=== PATIENT | male | born 1980 | race Caucasian/White ===

== ENCOUNTER 2024-04-07 12:29 | Emergency (ER) | payer OTHER, SELFPAY ==
--- NOTE | ~2024-04-07 | CT_ITS ---
EXAMINATION: CT abdomen pelvis w con DATE: 04/07/2024 14:19 INDICATION: Left lower quadrant abdominal pain TECHNIQUE: Computed tomography (CT) of the abdomen and pelvis was performed with 100 mL Omnipaque-350 intravenous contrast. Automated exposure control and iterative reconstruction technique were employe d. The dose-length product was 436.39 mGy-cm. COMPARISON: None FINDINGS: Lung bases are clear. Heart size is normal. No pericardial or pleural effusion. Focal hepatic steatos is at the ligamentum teres. Gallbladder, spleen, pancreas and bilateral adrenal glands are normal. 9 mm macroscopic fat attenuation angiomyolipoma at the lower pole of the right kidney. 1.2 cm fluid att enuation cyst at the lower pole of the left kidney. There is moderate colonic diverticulosis. There i s focal wall thickening at the proximal sigmoid colon with surrounding inflammatory stranding and sin gle tiny focus of extraluminal gas consistent with acute diverticulosis with microperforation. No abs cess, free intraperitoneal gas or more remote free intraperineal gas. No bowel obstruction. Tiny fat- containing umbilical hernia. Bladder is normal. No pathologically enlarged abdominal or pelvic lympha denopathy. Mild lumbar spondylosis. IMPRESSION: 1. Proximal sigmoid diverticulitis with microperforation but without abscess. Reviewed, dictated and finalized at location A.
[2024-04-07 12:32] VITALS: BP 126/82; PULSE 81; RESP 20; TEMP 36.7; O2SAT 100
[2024-04-07 13:00] LABS: Basophils Absolute Auto 0.1 K/mm3 (0.0-0.1); Basophils Percent Auto 0.4 % (0.2-1.2); Eosinophils Absolute Auto 0.1 K/mm3 (0-0.3); Eosinophils Percent Auto 0.4 % (0-4.4); Hematocrit 40.6 % (42.0-52.0); Hemoglobin 13.9 g/dL (14.0-18.0); Immature Granulocyte Absolute 0.09 K/mm3 (0.00-0.031); Immature Granulocyte Percent A 0.7 % (0-0.5); Lymphocytes Absolute Auto 1.53 K/mm3 (0.9-3.2); Lymphocytes Percent Auto 12.4 % (18.3-44.2); Mean Corpuscular HGB Conc 34.2 g/dl (32-36); Mean Corpuscular Hemoglobin 29.2 pg (26-34); Mean Corpuscular Volume 85.3 fl (80-100); Monocytes Absolute Auto 0.7 K/mm3 (0.1-0.6); Monocytes Percent Auto 5.5 % (2.6-8.5); Neutrophils Absolute Auto 9.9 K/mm3 (1.3-6.7); Neutrophils Percent Auto 80.6 % (45.5-73.1); Platelet Count Result 364 k/mm3 (150-375); Red Blood Count 4.76 M/mm3 (4.6-6.20); Red Cell Distribution Width 12.5 % (11.5-14.5); White Blood Count 12.3 K/mm3 (4.5-10.0)
[2024-04-07 13:05] LABS: Alanine Aminotransferase 57 U/L (6-50); Albumin Level 4.3 g/dL (3.5-5.1); Alkaline Phosphatase 72 U/L (38-126); Anion Gap 14 mmol/L (4-12); Aspartate Amino Transferase 40 U/L (17-59); Bilirubin,Total 0.4 mg/dL (0.2-1.3); Blood Urea Nitrogen 14 mg/dL (9-20); Calcium 9.1 mg/dL (8.4-10.2); Carbon Dioxide 23 mmol/L (22-30); Chloride 101 mmol/L (98-107); Estimated CRCL calculation 92 ml/min; Estimated Glomerular Filt Rate > 60; Glucose 125 mg/dL (65-110); Lipase 118 U/L (23-300); Potassium 3.5 mmol/L (3.4-5.0); Sodium 138 mmol/L (137-145)
--- NOTE | 2024-04-07 13:34 | ED.ABDPAIN ---
HPI - Abdominal Pain General Chief Complaint: Abdominal Pain Stated Complaint: diverticulitis flare up Time Seen by Provider: 04/07/24 13:19 Source: patient Mode of arrival: ambulatory Limitations: no limitations History of Present Illness HPI narrative: This is a 43-year-old male who presents to the ED with chief complaint of left sided abdominal pain x2 weeks and worse over the last couple of days. Patient reports that he had fever 100.42 nights ago but none since. He has been taking Tylenol intermittently. He has history of diverticulitis and this feels the same. endorses lower abdominal pain with urination and with bowel movements. Denies GI bleeding symptoms, diarrhea, nausea, vomiting, lightheadedness or syncope. Denies dysuria, hematuria Review of Systems Review of Systems: All systems as dictated in HPI Exam Narrative: GENERAL: Well-appearing, well-nourished, and in no acute distress. HEAD: Normocephalic, atraumatic. EYES: PERRLA and EOMI. ENT: Nares clear, no rhinorrhea or epistaxis. Mucous membranes moist. Oropharynx without tonsillar hypertrophy exudate or other lesions. NECK: Supple. No adenopathy or masses. CHEST: No respiratory distress. Clear to auscultation. No wheezes rales or rhonchi HEART: Regular rate and rhythm. No murmur heard. Normal peripheral pulses. ABDOMEN: focal left lower quadrant tenderness present. Soft, otherwise nontender, nondistended, normal active bowel sounds. MSK: Normal range of motion. No edema. SKIN: Warm, dry, no rash. NEURO: Alert and oriented x4. No focal deficits. PSYCH: Normal mood and affect. Course Vital Signs Vital signs: Vital Signs Temperature 98.0 F 04/07/24 12:32 Pulse Rate 81 04/07/24 12:32 Respiratory Rate 20 04/07/24 12:32 Blood Pressure 126/82 04/07/24 12:32 Pulse Oximetry 100 04/07/24 12:32 Oxygen Delivery Room Air 04/07/24 12:32 Temperature 98.3 F 04/07/24 15:00 Pulse Rate 70 04/07/24 15:00 Respiratory Rate 16 04/07/24 15:00 Blood Pressure 132/80 04/07/24 15:00 Pulse Oximetry 100 04/07/24 15:00 Oxygen Delivery Room Air 04/07/24 12:32 MDM - Abdominal Pain MDM Narrative Medical decision making narrative: This is a 43-year-old male who presents to the ED for repeat bout of uncomplicated sigmoid diverticulitis. Started having left lower quadrant pain over the past couple weeks. Vitals are normal. Exam remarkable for the above. Lab work shows slightly elevated white count [address]22. Labs are otherwise unremarkable. CT imaging remarkable for the above. Did not require any pain meds here. Rx for [place] for breakthrough pain as well as Augmentin for antibiotics. Pt will be discharged in stable condition. Return precautions given and supportive measures discussed. Pt is understanding and agreeable with plan for discharge and follow-up with PCP. Lab Data 04/07/24 12:49 04/07/24 12:49 Labs: Lab Results 04/07/24 04/07/24 Range/Units 12:49 13:28 WBC 12.3 H (4.5-10.0) K/mm3 RBC 4.76 (4.6-6.20) M/mm3 Hgb 13.9 L (14.0-18.0) g/dL Hct 40.6 L (42.0-52.0) % MCV 85.3 (80-100) fl MCH 29.2 (26-34) pg MCHC 34.2 (32-36) g/dl RDW 12.5 (11.5-14.5) % Plt Count 364 (150-375) k/mm3 MPV 10.0 (7.4-10.4) fl Immature Gran % (Auto) 0.7 H (0-0.5) % Neut % (Auto) 80.6 H (45.5-73.1) % Lymph % (Auto) 12.4 L (18.3-44.2) % [place] % (Auto) 5.5 (2.6-8.5) % Eos % (Auto) 0.4 (0-4.4) % Baso % (Auto) 0.4 (0.2-1.2) % Lymph # (Auto) 1.53 (0.9-3.2) K/mm3 [place] # (Auto) 0.7 H (0.1-0.6) K/mm3 Eos # (Auto) 0.1 (0-0.3) K/mm3 Baso # (Auto) 0.1 (0.0-0.1) K/mm3 Abs Immat Gran (auto) 0.09 H (0.00-0.031) K/mm3 Absolute Neuts (auto) 9.9 H (1.3-6.7) K/mm3 Absolute Nucleated RBC 0.000 (0.0-0.012) K/mm3 Nucleated RBC % 0.0 (0.0-0.2) % Sodium 138 (137-145) mmol/L Potassium 3.5 (3.4-5.0) mmol/L Chloride
[2024-04-07 13:50] LABS: Bacteria Urine None Seen /hpf; Non Pathogenic Casts 0-2; RBC Urine 0-2 /hpf (0-2); Squamous Epithelial Cell Urine None Seen /hpf (Few); WBC Urine 0-5 /hpf (0-3)
[2024-04-07 14:01] LABS: Appearance Urine Clear (Clear); Color Urine Yellow (Yellow); Protein Urine Negative (Negative); Specific Grav Ur 1.005 (1.001-1.035); pH Urine 6.5 (5.0-9.0)
[2024-04-07 14:02] LABS: Add Urine Microscopic? NO; Bilirubin Urine Negative (Negative); Blood Urine Negative (Negative); Glucose Urine UA Negative (Negative); Ketones Urine Negative (Negative); Leukocyte Esterase Ur Negative LEU/UL (Negative); Nitrate Urine Negative (Negative); Urobilinogen Urine 0.2 mg/dL (<2.0)
[2024-04-07 15:00] VITALS: BP 132/80; PULSE 70; RESP 16; TEMP 36.8; O2SAT 100
== END 2024-04-07 15:02 | disposition home or self-care (01) ==
PROVIDERS: Student in an Organized Health Care Education/Training Program; Emergency Provider Physician Assistant
DX: K57.32 Diverticulitis of large intestine without perforation or abscess without bleeding (principal)
CPT/HCPCS: 36415; 74177; 80053; 81003; 83690; 85025; 99284; Q9967

== ENCOUNTER 2024-12-28 20:01 | Emergency (ER) | payer OTHER, SELFPAY ==
[2024-12-28] VITALS (15 sets, daily range): BP systolic 112–132; BP diastolic 71–83; PULSE 70–93; RESP 13–21; TEMP 36.9; O2SAT 95–100
--- NOTE | ~2024-12-28 | CT_ITS ---
CLINICAL INDICATION: Abdominal pain COMPARISON: 04/07/2024. TECHNIQUE: Multiple contiguous axial images of the abdomen and pelvis were performed following the ad ministration of with 100 mL Omnipaque-350 intravenous contrast The dose-length product (DLP) was 612.10 mGy-cm. Automated exposure control and iterative reconstruction technique were employed. FINDINGS/OBSERVATIONS: Visualized lower thorax: The bilateral lung bases are clear. The heart is of normal size, without pericardial effusion. Small hiatal hernia is present. Liver: The liver demonstrates homogeneous enhancement and is not enlarged. Gallbladder and biliary system: The gallbladder is only minimally distended, and otherwise unremarkable. Pancreas: The pancreas enhances homogeneously without ductal dilatation. Spleen: The spleen enhances homogeneously and is not enlarged. Kidneys: The bilateral kidneys enhance symmetrically without hydronephrosis or renal calculi. Adrenal glands: Unremarkable. Gastrointestinal tract: Mural thickening and surrounding inflammatory changes identified within the sigmoid colon, findings c onsistent with acute diverticulitis. No gross perforation is identified. Small contained perforation is noted. No rim-enhancing fluid collections are identified. Appendix: The appendix is not definitively visualized. However, no pericecal inflammatory change is identified suggest the presence of acute appendicitis. Vasculature: Unremarkable. Lymph nodes: No pathologically enlarged or morphologically suspicious lymph nodes within the retroperitoneum or at the root of the mesentery. Pelvic structures: The bladder is minimally distended, and otherwise unremarkable. The prostate gland is not enlarged. Body wall and musculoskeletal: Small fat-containing umbilical hernia. No significant degenerative disease within the lower thoracic or lumbosacral spine. IMPRESSION: Findings consistent with acute sigmoid diverticulitis without a drainable fluid collection or gross p erforation. A small contained perforation is identified. Follow-up to resolution is recommended as a malignancy has a similar appearance. Reviewed, dictated and finalized at location A. IMPRESSION: Findings consistent with acute sigmoid diverticulitis without a drainable fluid collection or gross perforation. A small contained perforation is identified. Follow-up to resolution is recommended as a malignancy has a similar appearance .
--- OUTSIDE RECORDS SUMMARY | 2024-12-28 20:03 | XMS_ITS | Continuity of Care Document ---
Author Name [facility] Organization [facility] Care Team Providers Care Grant Officer Name Role Phone [facility] Unavailable Unavailable Problems Combined list of problems from Department of Defense and Veterans Affairs facilities. It does not include entries that were removed or entered in error. Problem Status Onset Date Problem Type Date of Resolution Comments Source Anxiety Active Condition [facility] Cervical degenerative disc disease1 Active Condition MRI IN 2014 [facility] GERD Active Condition Medical Group Hyperlipidaemia Active Condition [facility] Knee pain2 Active Condition MRI in 15 with fat pad hypertrophy [facility] PTSD Active Condition [facility] Medications Combined list of outpatient medications from Department of Defense and Veterans Affairs facilities.Medications provided include 1) outpatient medications from the last 15 months, and 2) patient-reported medications. 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, Pharmacy : [facility] Oral (given by mouth) Complet ed 07/27/20212020 90.0 0059C-2 [facility] Ambien 5 mg oral tablet 2 tab(s), Oral, As Directed , PRN as needed for sleep, 0 total refill(s ), Maintena nce Oral (given by mouth) Discont inued 03/23/202220219C-2 [facility] Ambien 5 mg oral tablet 2 tab(s), Oral, As Directed , PRN sleep, # 24 tab(s), 0 total refill(s ), Acute, 08/22/22 12:00:00 AM 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, Pharmacy : [facility] Oral (given by mouth) Complet ed 08/22/2022 2 2022 24.0 0059C-[facility] cholecalcif alesha 1000 intl units (25 mcg) oral tablet cholecal ciferol 1000 intl units (25 mcg) oral tablet Start Date: 08/25/20 Stop Date: 03/14/21 Status: Disconti phyllis Repeat number: 1 Discont inued 03/14/20212020 No Facilit y Access cholecalcif alesha 50,000 intl units (1250 mcg) oral capsule 1 cap(s), Oral, every week, # 100 cap(s), Maintena nce Oral (given by mouth) Complet ed 03/08/20222021 100.0 No Facilit y Access gabapentin 300 mg oral capsule 1 cap(s), Oral, Daily, # 30 cap(s), 0 total refill(s ), Maintena pre, Pharmacy : [facility] #[id number] Oral (given by mouth) Ordered 2021 30.0 0059C-2 [facility] gabapentin 300 mg oral capsule 1 cap(s), Oral, Daily, # 30 cap(s), 0 total refill(s ), Hard Stop, 05/12/22 11:25:08 AM CDT, Pharmacy : [facility] Oral (given by mouth) Complet ed 05/12/20222021 30.0 0059C-2 [facility] ibuprofen 800 mg oral tablet 1 tab(s), Oral, TID, # 30 tab(s) Oral (given by mouth) Complet ed 03/08/20222021 30.0 No Facilit y Access ibuprofen 800 mg oral tablet 1 tab(s), Oral, every 8 hr, PRN pain (mild), with food or milk, # 270 tab(s), 0 total refill(s ), Maintena prbrooklyn, Pharmacy : [facility] Oral (given by mouth) Discont inued 03/23/2022 2 2021 270.0 0059C-2 [facility] ibuprofen 800 mg oral tablet 1 tab(s), Oral, every 8 hr, PRN pain (mild), with food or milk, # 270 tab(s), 0 total refill(s ), [facility], Pharmacy : [facility] Oral (given by mouth) Discont inued 08/09/2021 1 2021 270.0 0059C-2 [facility] ibuprofen 800 mg oral tablet 1 tab(s), Oral, every 8 hr, PRN pain (mild), with food or milk, # 270 tab(s), 1 total refill(s ), [facility], Pharmacy : [facility] Oral (given by mouth) Ordered 3 2021 270.0 0059C-2 [facility] omeprazole 20 mg oral delayed release capsule 1 cap(s), Oral, BID Oral (given by mouth) Complet ed 03/08/20222021 No Facilit y Access omeprazole 20 mg oral delayed release capsule 1 cap(s), Oral, Daily, 30 to 60 minutes before a meal, # 90 cap(s), 3 total refill(s ), [facility], Pharmacy : [facility] Oral (given by mouth) Discont inued 03/23/2022 2 2021 90.0 0059C-2 [facility] omeprazole 20 mg oral delayed release capsule 1 cap(s), Oral, Daily, 30 to 60 minutes before a meal, # 90 cap(s), 3 total refill(s ), [facility], Pharmacy : [facility] Oral (given by mouth) Ordered 3 2021 90.0 0059C-2 [facility] rizatriptan 5 mg oral tablet, disintegrat ing rizatrip oliver 5 mg oral tablet, disinteg rating Start Date: 07/02/20 Stop Date: 03/14/21 Status: Kameron ferguson Repeat number: 1 Discont inued 03/14/20212020 No Facilit y Access rizatriptan 5 mg oral tablet, disintegrat ing See Instruct ions, PRN headache , Dissolve one tablet on tongue at onset of migraine headache , may repeat dose every 2 hours up to a maximum of 30 mg in 24 hours, # 10 tab(s), 4 total refill(s ), Acute, 12/08/21 12:00:00 AM CDT, Pharmacy : [facility] Complet ed 12/08/2021 2 2021 10.0 0059C[facility] rizatriptan 5 mg oral tablet, disintegrat ing See Instruct ions, PRN headache , Dissolve one tablet on tongue at onset of migraine headache , may repeat dose every 2 hours up to a maximum of 30 mg in 24 hours, # 10 tab(s), 2 total refill(s ), [facility], Pharmacy : [facility] Ordered 3 2021 10.0 0059C-2 [facility] rizatriptan 5 mg oral tablet, disintegrat ing See Instruct ions, PRN headache , Dissolve one tablet on tongue at onset of migraine headache , may repeat dose every 2 hours up to a maximum of 30 mg in 24 hours, # 6 tab(s), 0 total refill(s ), [facility] 08/09/20212021 6.0 0059C-2 [facility] tiZANidine 4 mg oral tablet tiZANidi ne 4 mg oral tablet Start Date: 12/31/19 Stop Date: 03/14/21 Status: Disconti phyllis Repeat number: 1 Discont inued 03/14/20212020 No Facilit y Access Vitamin D3 25 mcg (1000 intl units) oral tablet 1 tab(s), Oral, Daily, # 90 tab(s), 3 total refill(s ), [facility], Pharmacy : [facility] Oral (given by mouth) Discont inued 03/23/2022 2 2021 90.0 0059C-2 [facility] Vitamin D3 25 mcg (1000 intl units) oral tablet 1 tab(s), Oral, Daily, # 90 tab(s), 3 total refill(s ), [facility], Pharmacy : [facility] Oral (given by mouth) Ordered 3 2021 90.0 0059C-2 [facility] zolpidem 10 mg oral tablet zolpidem 10 mg oral tablet Start Date: 07/02/20 Stop Date: 03/14/21 Status: Kameron ferguson Repeat number: 1 Discont inued 03/14/20212020 No Facilit y Access zolpidem 10 mg oral tablet 1 tab(s), Oral, every day at bedtime, PRN as needed for sleep, 0 total refill(s ), Maintena nce Oral (given by mouth) Discont inued 08/09/20212021 0059C-2 [facility] zolpidem 10 mg oral tablet 1 tab(s), Oral, every day at bedtime, PRN sleep, # 60 tab(s), 1 total refill(s ), Acute, 12/08/21 12:00:00 AM CDT, Pharmacy : [facility] Oral (given by mouth) Complet ed 12/08/2021 2021 60.0 0059C-2 [facility] Immunizations Combined list of available immunizations from the Department of Defense and Veterans Affairs facilities. Immunization Series Date Given Administered By Site Reaction Lot Number CVX Code Drug Supervisor Decorating Status Comments Source influenza virus vaccine, unspecified 2018 TRANSCR IBED 88 complet ed influenza virus vaccine, unspecifi ed 06/03/19 Given Ambulat ory Pharmac y influenza, injectable, quadrivalent- pf 2017 [id number] Seqirus complet ed influenza , injectabl e, quadrival ent-pf 05/06/18 Given Ambulat ory Pharmac y tetanus-dipht h toxoids (Td) adult/adol 2017 [id number] [place] [employer] complet ed tetanus-d iphth toxoids (Td) adult/ado l 08/31/17 Given Ambulat ory Pharmac y influenza, injectable, quadrivalent- pf 2016 [id number] 150 GlaxoSmithKli ne complet ed influenza , injectabl e, quadrival ent-pf 04/11/17 Given Ambulat ory Pharmac y influenza, injectable, quadrivalent- pf 2015 [id number] 150 GlaxoSmithKli ne complet ed influenza , injectabl e, quadrival ent-pf 05/23/16 Given Ambulat ory Pharmac y influenza virus vaccine, unspecified 2014 TRANSCR IBED 88 complet ed influenza virus vaccine, unspecifi ed 06/01/15 Given Ambulat ory Pharmac y influenza, live, intranasal,qu adrivalent 2013 [id number] 149 Mediune Inc comple t ed influenza , live, intranasa l,quadriv alent 07/28/14 Given Ambulat ory Pharmac y anthrax vaccine 2013 [id number] 24 Emergent Biosolutions complet ed anthrax vaccine 09/23/13 Given Ambulat ory Pharmac y measles/mumps /rubella virus vaccine 2013 [id number] Yo & [employer] complet ed measles/m umps/rube lla virus vaccine 09/23/13 Given Ambulat ory Pharmac y typhoid Vi capsular polysaccharid e vac 2013 [id number] 101 sanofi pasteur complet ed typhoid Vi capsular polysacch aride vac 09/23/13 Given Ambulat ory Pharmac y influenza, live, intranasal,qu adrivalent 2012 [id number] 149 Medimmune Inc comple t ed influenza , live, intranasa l,quadriv alent 04/30/13 Given Ambulat ory Pharmac y influenza virus vaccine, live 2011 [id number] 111 Medimmune Inc comple t ed influenza virus vaccine, live 04/03/12 Given Ambulat ory Pharmac y influenza, seasonal, injectable 2010 [id number] 141 sanofi pasteur complet ed influenza , seasonal, injectabl e 03/28/11 Given Ambulat ory Pharmac y influenza virus vaccine,split 2009 [id number] 15 CSL Behring complet ed influenza virus vaccine,s plit 04/27/10 Given Ambulat ory Pharmac y Novel influenza-H1N 1-09, injectable 2009 [id number] 127 Novartis Pharmaceutica complet ed Novel influenza -U9U7-14, injectabl e 09/02/09 Given Ambulat ory Pharmac y influenza virus vaccine,split 2008 [id number] 15 sanofi pasteur complet ed influenza virus vaccine,s plit 04/15/09 Given Ambulat ory Pharmac y typhoid Vi capsular polysaccharid e vac 2007 [id number] 101 sanofi pasteur complet ed typhoid Vi capsular polysacch aride vac 07/14/08 Given Ambulat ory Pharmac y anthrax vaccine 2007 [id number] 24 [employer] complet ed anthrax vaccine 07/14/08 Given Ambulat ory Pharmac y influenza virus vaccine, live 2007 [id number] 111 [employer] Inc comple t ed influenza virus vaccine, live 06/09/08 Given Ambulat ory Pharmac y tetanus, diphtheria, acellular pertu is 2007 [id number] 115 sanofi pasteur complet ed tetanus, diphtheri a, acellular pertussis 08/22/07 Given Ambulat ory Pharmac y influenza virus vaccine,split 2006 [id number] 15 IIIMOBI ne complet ed influenza virus vaccine,s plit 05/24/07 Given Ambulat ory Pharmac y influenza virus vaccine, live 2005 [id number] 111 MediAptiv Solutionsune Inc comple t ed influenza virus vaccine, live 06/08/06 Given Ambulat ory Pharmac y typhoid vaccine, inactivated 2005 [id number] 101 sanofi pasteur complet ed typhoid vaccine, inactivat ed 09/27/05 Given Ambulat ory Pharmac y influenza virus vaccine,split 2004 [id number] 15 sanofi pasteur complet ed influenza virus vaccine,s plit 07/07/05 Given Ambulat ory Pharmac y influenza virus vaccine,split 2003 [id number] 15 sanofi pasteur complet ed influenza virus vaccine,s plit 05/31/04 Given Ambulat ory Pharmac y anthrax vaccine 2003 [id number] 24 [employer] complet ed anthrax vaccine 12/29/03 Given Ambulat ory Pharmac y tuberculin purified protein derivative 2003 zzLef t Arm [id number] 96 sanofi pasteur complet ed Patient Tolerance : Negative Ambulat ory Pharmac y tuberculin purified protein derivative 2002 [id number] 96 sanofi pasteur complet ed tuberculi n purified protein derivativ e 06/24/03 Given Ambulat ory Pharmac y anthrax vaccine 2002 [id number] 24 [employer] complet ed anthrax vaccine 06/24/03 Given Ambulat ory Pharmac y influenza virus vaccine, whole virus 2002 [id number] 16 Novartis Pharmaceutica ls complet ed influenza virus vaccine, whole virus 06/12/03 Given Ambulat ory Pharmac y hepatitis B adult vaccine 2002 [id number] 43 GlaxoSmithKli ne complet ed hepatitis B adult vaccine 12/15/02 Given Ambulat ory Pharmac y typhoid vaccine, inactivated 2002 [id number] 101 sanofi pasteur complet ed typhoid vaccine, inactivat ed 12/15/02 Given Ambulat ory Pharmac y anthrax vaccine 2002 [id number] 24 [employer] complet ed anthrax vaccine 10/06/02 Given Ambulat ory Pharmac y anthrax vaccine 2002 [id number] 24 [employer] complet ed anthrax vaccine 09/21/02 Given Ambulat ory Pharmac y meningococcal polysaccharid e (MPSV4) 2002 [id number] 32 sanofi pasteur complet ed meningoco ccal polysacch aride (MPSV4) 08/11/02 Given Ambulat ory Pharmac y anthrax vaccine 2002 [id number] 24 [employer] complet ed anthrax vaccine 08/11/02 Given Ambulat ory Pharmac y influenza virus vaccine, whole virus 2001 [id number] 16 [facility] complet ed influenza virus vaccine, whole virus 06/25/02 Given Ambulat ory Pharmac y hepatitis B adult vaccine 2001 [id number] 43 GlaxoSmithKli ne complet ed hepatitis B adult vaccine 06/03/02 Given Ambulat ory Pharmac y tuberculin purified protein derivative 2001 [id number] 96 sanofi pasteur complet ed Patient Tolerance : Negative Ambulat ory Pharmac y hepatitis B adult vaccine 2001 [id number] A4 43 GlaxoSmithKli ne complet ed hepatitis B adult vaccine 01/31/02 Given Ambulat ory Pharmac y influenza virus vaccine, whole virus 2000 [id number] 16 sanofi pasteur complet ed influenza virus vaccine, whole virus 07/02/01 Given Ambulat ory Pharmac y influenza virus vaccine, whole virus 1999 [id number] 16 [facility] complet ed influenza virus vaccine, whole virus 07/19/00 Given Ambulat ory Pharmac y tuberculin purified protein derivative 1999 [id number] 96 [facility] complet ed Patient Tolerance : Negative Ambulat ory Pharmac y influenza virus vaccine, whole virus 1998 [id number] 16 IVFX[facility]ERTmary [facility] healthcareSensor[facility] Inc[facility] complet ed influenza virus vaccine, whole virus 05/17/99 Given Ambulat ory Pharmac y yellow fever vaccine [id number] 37 sanofi pasteur complet ed yellow fever vaccine 06/04/98 Given Ambulat ory Pharmac y hepatitis A adult vaccine 1997 [id number] 52 Yo & [employer] complet ed hepatitis A adult vaccine 05/14/98 Given Ambulat ory Pharmac y influenza virus vaccine, whole virus 19974501 [id number] 16 sanofi pasteur complet ed influenza virus vaccine, whole virus 05/14/98 Given Ambulat ory Pharmac y typhoid vaccine, live, oral 1997 [id number] 25 [employer] complet ed typhoid vaccine, live, oral 01/08/98 Given Ambulat ory Pharmac y hepatitis A adult vaccine 1997 [id number] 52 [place] [employer] [place] complet ed hepatitis A adult vaccine 08/28/97 Given Ambulat ory Pharmac y measles/mumps /rubella virus vaccine 1997 03 complet ed measles/m umps/rube lla virus vaccine 08/28/97 Given Ambulat ory Pharmac y poliovirus vaccine, live, oral 1997 02 complet ed polioviru s vaccine, live, oral 08/28/97 Given Ambulat ory Pharmac y meningococcal polysaccharid e (MPSV4) 1997 [id number] 32 [employer] [place] complet ed meningoco ccal polysacch aride (MPSV4) 08/21/97 Given Ambulat ory Pharmac y influenza virus vaccine, whole virus 1997 16 complet ed influenza virus vaccine, whole virus 08/21/97 Given Ambulat ory Pharmac y tetanus-dipht h toxoids (Td) adult/adol 1997 09 complet ed tetanus-d iphth toxoids (Td) adult/ado l 08/21/97 Given Ambulat ory Pharmac y tuberculin purified protein derivative 1997 UNK 96 Unknown complet ed Patient Tolerance : Negative Ambulat ory Pharmac y Results Combined list of recent chemistry, hematology and other laboratory results from Department of Defense and Veterans Affairs, ranging from 15 months to all on record, depending upon the facility. Order Name Results Value Reference Range Date Interpretation Specimen Comments Source Chemistry Testostero ne Total 317.20 ng/dL 249.00 - 836.00 11/15 N Interpretiv e Data: 08 JUN 2017 Notice: Samples for this assay should not be taken from patients receiving therapy with high biotin doses (i.e. > 5 mg/day) until 8 hours following last biotin administrat ion. New Reference Range effective 17 [id number]-AF -ASU-59t h [facility] Chemistry PSA Free LC 0.23 ng/mL 09/06 Result Comment: [place] ECLIA methodology . [facility] Group Chemistry Prostate Specific Ag LC 1.0 ng/mL 09/06 Result Comment: [employer] ECLIA methodology . According to the [place] [employer] , Serum PSA should decrease and remain at undetectabl e levels after radical prostatecto my. The AUA defines biochemical recurrence as an initial PSA value 0.2 ng/mL or greater followed by a subsequent confirmator y PSA value 0.2 ng/mL or greater. Values obtained with different assay methods or kits cannot be used interchange ably. Results cannot be interpreted as absolute evidence of the presence or absence of malignant disease. Medical [facility] Chemistry % Free PSA LC 23.0 % 09/06 Result Comment: The table below lists the probability of prostate cancer for men with non-suspici ous DONNA results and total PSA between 4 and 10 ng/mL, by patient age (Nitin et al, ELEANOR 1998, 279:1542). % Free PSA 50-64 yr 65-75 yr 0.00-10.00% 56% 55% 10.01-15.00 % 24% 35% 15.01-20.00 % 17% 23% 20.01-25.00 % 10% 20% >25.00% 5% 9% Please note: Nitin et al did not make specific recommendat ions regarding the use of percent free PSA for any other population of men. Performed At: [facility] [address] [address] [place], [place] [id number] Dami WHITE MD Ph:[phone] [facility] Group Chemistry Testostero ne Serum LC 201 ng/dL 09/06 L Result Comment: Adult male reference interval is based on a population of healthy nonobese males (BMI <30) between 19 and 39 years old. gigi Rodriguez.al. JCEM 2017,102;11 61-1173. PMID: [id number]. [facility] Chemistry Free Testostero ne Direct LC 7.6 pg/mL 09/06 Result Comment: Performed At: 01 [facility] [address] [facility] [address] [place], [place] [id number] Dami WHITE MD Ph:[phone] Performed At: 02 [facility] [place] [id number] [place], [place] [id number] Frandy Mcguire MD Ph:[phone] [facility] Hematolog y Baso Absolute 0.02 10^3/uL 0.00 - 0.41716 08/02 N [facility] Hematolog y Eos Absolute 0.08 10^3/uL 0.00 - 0.52216 08/02 N [facility] Hematolog y [place] Absolute 0.65 10^3/uL 0.20 - 0.81644 08/02 N [facility] Hematolog y Lymph Absolute 2.10 10^3/uL 0.70 - 3.98246 08/02 N [facility] Hematolog y Neutro Absolute 3.95 10^3/uL 1.00 - 7.37905 08/02 N [facility] Hematolog y Basophil % Auto 0.3 % 0.0 - 0.9 08/02 N [facility] Hematolog y Monocyte % Auto 9.6 % 1.7 - 9.3 08/02 H [facility] Hematolog y Eosinophil % Auto 1.2 % 0.0 - 6.6 08/02 N [facility] Hematolog y Lymphocyte % Auto 30.9 % 20.5 - 51.1 08/02 N [facility] Hematolog y Neutrophil % Auto 58.0 % 39.8 - 78.2 08/02 N [facility] Hematolog y Neut Abs Man 4.4 x10^3/mc L 08/02- [facility] Hematolog y [place] Abs Man 0.27 10^3/uL 08/02 005- [facility] Hematolog y Lymph Abs Man 1.9 x10^3/mc L 08/02 [facility] Hematolog y Eos Abs Man 0.07 10^3/uL 08/02 005- [facility] Hematolog y Lymph Man 28 /100WBC 20 - [id number] 08/02 N [facility] Hematolog [facility] Segs Man 64 /100WBC 55 - [id number] 08/02 N - [facility] Hematolog y [place] Man 4 08/02 [facility] Hematolog y Atyp Lymph Man 3 08/02 [facility] Hematolog y Eos Man 1.0 % 0.0 - 6.6 08/02 N - [facility] Hematolog y PLT Estimate Adequate ( 1 9:03 AM) 08/02 [facility] Hematolog y PLT Morph Normal ( 1 9:03 AM) 08/02 N [facility] Hematolog y RBC Morph Normal ( 1 9:03 AM) 08/02 N - [facility] Chemistry eGFR AA 121 mL/min 08/02 N - [facility] Chemistry eGFR Non-AA 104 mL/min 08/02 N [facility] Miscellan eous Sendouts 25-Hydroxy Vit D Total.EPI 43.20 ng/mL 08/02 Result Comment: INTERPRETAT ION(S): Classificat ion of Vitamin D Status: Deficient: <20 ng/mL Insufficien t: 20-29 ng/mL Sufficient: 30-100 ng/mL Possible Toxicity: >100 ng/mL There are no pediatric reference ranges established for this test. Adult age is 18+ This assay is for the quantitativ e determinati on of total 25 (OH) vitamin D. It is intended as an aid in the determinati on of vitamin D sufficiency . Results should always be interpreted in conjunction with the patient's medical history, clinical presentatio n, and other findings. Testing performed by [employer] deb[facility] raphael. Performed by: Epidemiolog y [facility] [address] [place], [place] [address], [place] [address] [facility] Chemistry Chol/HDL 5.21 mg/dL 08/02 [facility] Chemistry Cholestero l Total 302.00 mg/dL 50.00 - 200.00 08/02 H [facility] Chemistry HDL Cholestero l 58.00 mg/dL 40.00 - 60.00 08/02 N [facility] Chemistry LDL 202.60 mg/dL 30.00 - 100.00 08/02 H [facility] Chemistry Triglyceri cherise 207 mg/dL 35 - 150 08/02 H [facility] Hematolog y MCHC 35.0 g/dL 32.9 - 36.2 08/02 N [facility] Hematolog y MCV 82.6 fL 77.7 - 97.9 08/02 N [facility] Hematolog y MCH 28.9 pg 26.9 - 34.0 08/02 N [facility] Hematolog y Hematocrit 46.0 % 37.7 - 51.6 08/02 N 0059A- [facility] Hematolog y WBC 6.80 10^3/uL 3.10 - 10.22650 08/02 N [facility] Hematolog [facility] Hemoglobin 16.10 g/dL 12.90 - 18.00 08/02 N - [facility] Hematolog y RBC 5.57 10^6/uL 4.50 - 5.19374 08/02 N 005 [facility] Hematolog y Differenti al? Auto+Mor ph ( 1 9:03 AM) 08/02 N 0059A- [facility] Hematolog y RDW 15.0 08/02 005 [facility] Hematolog [facility] MPV 10.8 fL 6.5 - 9.8 08/02 H [facility] Hematolog y Platelets 210 10^3/uL 151 - [id number] 08/02 N [facility] Chemistry A/G Ratio 1.8 ratio 1.1 - 2.2 08/02 N [facility] Chemistry Creatinine Level 0.900 mg/dL 0.700 - 1.300 08/02 [facility] Chemistry AGAP Not Performe d ( 1 9:03 AM) 10 - 08/02 [facility] Albumin 5.10 g/dL 3.50 - 5.00 08/02 H [facility] Alk Phos 78.00 U/L 38.00 - 126.00 08/02 [facility] Sodium 138.00 mmol/L 137.00 - 145.00 08/02 [facility] Protein Total 7.9 g/dL 6.3 - 8.2 08/02 N [facility] Potassium Lvl 4.30 mmol/L 3.50 - 5.10 08/02 [facility] Chloride 103.0 mmol/L 98.0 - 107.0 08/02 N [facility] Chemistry CO2 28.00 mmol/L 22.00 - 30.00 08/02 [facility] Chemistry Glucose Lvl 125.0 mg/dL 74.0 - 100.0 08/02 [facility] Chemistry Bilirubin Total 0.80 mg/dL 0.20 - 1.30 08/02 [facility] Chemistry BUN 21.00 mg/dL 8.00 - 20.00 08/02 [facility] Chemistry Calcium 9.70 mg/dL 8.40 - 10.20 08/02 [facility] ALT 77.00 U/L 4.00 - 50.00 08/02 [facility] Chemistry AST 48.00 U/L 14.00 - 59.00 08/02 N 005- [facility] Chemistry Hemoglobin A1c 5.50 % 4.20 - 5.60 08/02 N 005 [facility] Chemistry TSH 1.880 uIU/mL 0.470 - 4.680 08/02 N 005- [facility] Urinalysi s UA Color Yellow ( 9:03 AM) 08/02 [facility] Urinalysi s UA Blood Negative ( 9:03 AM) 08/02 N - [facility] Urinalysi s UA Ketones Negative ( 9:03 AM) 08/02 [facility] Urinalysi s UA Glucose Negative ( 9:03 AM) 08/02 [facility] Ur[facility]ysi s UA Bili Negative ( 9:03 AM) 08/02 [facility] UA Clarity Clear ( 9:03 AM) 08/02 [facility] UA Appear Clear ( 9:03 AM) 08/02 [facility] Ur[facility]ysi s UA Micro Ind? Not Indicate d *NA* ( 9:03 AM) 08/02 [facility] Urinalysi s UA Spec [place] 1.020 ( 9:03 AM) 08/02 N - [facility] Urinalysi s UA Nitrite Negative ( 9:03 AM) 08/02 [facility] Urinalysi s UA Leuk Esterase Negative ( 9:03 AM) 08/02 N [facility] [facility] UA Protein Negative ( 9:03 AM) [facility]A pH 6.0 *NA* ( 1 9:03 AM) 5.0 - 7.0 [facility] UA Urobilinog en TNP [facility] Vital Signs Combined list of inpatient and outpatient Vital Signs from [facility], ranging from 12 months to all on record, depending upon the facility. Vital Sign Value Date Comments Source Temperature Oral 36.8 [place] 08/09/2021 13:52:00 [id number] Systolic Blood Pressure 125 mm[Hg] 08/09/19 13:52:00 [id number] Diastolic Blood Pressure 77 mm[Hg] 022 13:52:00 [id number] Respiratory Rate 17 br/min 08/09/2021 13:52:00 [id number] Peripheral Pulse Rate 96 bpm 08/09/2021 13:52:00 [id number] Blood Pressure Manual Automatic 08/09/2021 13:52:00 [id number] Mean Arterial Pressure, Calc 93 mm[Hg] 08/09/2021 13:52:00 [id number] BP Site Left arm 08/09/2021 13:52:00 [id number] Systolic Blood Pressure 114 mm[Hg] 03/14/20 21 13:24:00 [id number] Diastolic Blood Pressure 73 mm[Hg] 021 13:24:00 [id number] Mean Arterial Pressure, Calc 87 mm[Hg] 03/14/2021 13:24:00 [id number] Systolic Blood Pressure 115 mm[Hg] 03/23/20 22 15:53:00 [id number] Diastolic Blood Pressure 79 mm[Hg] 022 15:53:00 [id number] BP Site Left arm 03/23/2022 15:53:00 [id number] Respiratory Rate 16 br/min 03/23/2022 15:53:00 [id number] Peripheral Pulse Rate 75 bpm 03/23/2022 15[facility]53:[facility] Automatic 03/23/2022 15:53:00 [facility] Mean Arterial Pressure, Calc 91 mm[Hg] 03/23/2022 15:53:00 [facility] Procedures Combined list of: 1) Procedures from [facility] of Veterans Affairs facilities going back up to [facility] 18 months, not all [facility] non-surgical procedures are included; 2) All procedures from the Department of [facility] facilities. Procedure Procedure Type Code Date Perfomer Comments Sour e Vasectomy date not reported; within the last 9 years [facility] tonsillect[facility], [facility] 2 hernia repairs. [facility] WTE X 2 DATE NOT REPORTED [facility] Social History Combined list of available smoking, tobacco, and other social history from [facility] and [facility] facilities. Social History Type Response Date Comment Sour e Sex Representation Male (finding) 09/10/2020 Un known Organization Tobacco Never - tobacco user Other Tobacco use:. [facility] Sexual Orientation [facility] Gender identity [facility] This section is an empty social history section. [facility] Assessment and Plan Combined list of future care activities from [facility] of Defense and [facility] Affairs facilities (e.g., assessment and plan notes, appointments, orders, and referrals). Additional future care activities may be listed in the Plan of Care section. Result Assessment and Plan Date Source Assessment and Plan Extracted from:Title : [facility] -Insomnia, Fatigue Author: LAMAR QUINN Date: 03/26/22 1. A nxiety 41 yr old M with history of PTSD and anxiety. Has gone to CBT for insomnia, anxiety, and PTSD. No history of anxiety medication. Problems initiating and maintaining sleep approx 1x every 2 weeks due to high levels of anxiety. Will take Ambien then to sleep. 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 F atigue 2 years of fatigue, decreased libido, and decreased gain in muscle mass. Patient attributes to low testosterone level. - Ordered repeat TSH, testosterone, Vitamin D, B12, CBC, lipids, and LFTs t o evaluate for causes of fatigue and decreased libido - Patient verbalized understanding and agreement with plan 3. G ERD - Refilled Omeprazole 20mg 4. C ervical degenerative disc disease - Refilled Ibuprofen 800mg Extracted from:Title: Annual Author: ROMA WILLOUGHBY NP Date: 08/09/21 1. E ncounter for general adult medical examination without abnormal findings P reventative Medicine / HCM visit with no emergent concerns. - Due for colonoscopy at 43 - Recommended yearly HCM visits - Screening labs reviewed with patient at time of visit - Discussed importance of healthy diet and exercise (5x/week, 20-30 minutes of sustained cardiovascular training) - Referred to Immunizations to remain UTD Patient verbalized understanding and agrees with POC. Roma Willoughby APRN, [employer]-C MACHINE OVERHAULER 2. A bnormal urination P bryon states that he has no burning o r have not noticed any blood in his urine s kathy the frequency and urgency has started, u ltrasound is ordered of his kidneys and bladder with a postvoid. Encouraged patient t o just drink water a nd try to limit pop as much as possible until r esults are obtained a nd reviewed. D iscussed with patient that referral management will notify them of when and where their appointment will be and to make sure that they obtain all of the information and phone numbers so in case they need to make or reschedule appointment. P atient verbalizes understanding and agrees with plan of care. Roma Willoughby APRN, [employer]-C MACHINE OVERHAULER 3. C fci injury P bryon continues to have i ssues with his calf injury, MRI is ordered a nd also referral to Ortho f or further evaluation and treatment. D iscussed with patient that when he goes and gets his MRI he needs to obtain the disc and take it to Ortho with him a t his appointment. Discussed with patient that referral management will notify them of when and where their appointment's will be and to make sure that they obtain all of the information and phone numbers so in case they need to make or reschedule appointment. P atient verbalizes understanding and agrees with plan of care. Roma Willoughby APRN, NP-C MACHINE OVERHAULER Extracted from:Title: muscle strain Author: ROMA WILLOUGHBY NP Date: 03/14/21 1. C milagros injury P ain with s tretching o f calf muscle and pain with weight bearing. No pain is noted around right knee with palpation or movement, Achilles appears intact, with flexing foot upward causes pain in the calf due to stretching the muscle. No redness or warmth is noted, edema is noted especially looking at them [id number]. No bruising is noted at this time. Discussed with patient that has been less than 24 hours since injury, continued to to rest, ice, compression and elevate (RICE). Patient will continue the ibuprofen he t akes normally. P bryon was requesting an MRI of the muscle, discussed with patient that even if it showed a tear that i t would not change our treatment, referral was entered for physical therapy. Discussed with patient that if he is in therapy and completing the exercises at home and is not getting better and they recommended further testing, and will be discussed then. Patient verbalizes understanding and agrees with plan of care. Roma Willoughby APRN, CINDA-C MACHINE OVERHAULER Ordered: Office Visit Level 3 Est 81978 12/29/2024 [id number] Functional Status Combined list of recent functional and cognitive assessments recorded at [facility] ([facility]).VA Functional Henry Measurement (FIM) Scale: 1 = Total Assistance (Subject = 0% +), 2 = Maximal Assistance (Subject = 25% +), 3 = Moderate Assistance (Subject = 50% +), 4 = Minimal Assistance (Subject = 75% +), 5 = Supervision, 6 = Modified Henry (Device), 7 = Complete Henry (Timely, Safely). Assessment Date/Time Source Assessment Type Assessment Skill Assessment Score Assessment Details No data available for this section
[2024-12-28 20:34] LABS: Add Urine Microscopic? NO; Appearance Urine Clear (Clear); Bilirubin Urine Negative (Negative); Blood Urine Negative (Negative); Color Urine Yellow (Yellow); Glucose Urine UA Negative (Negative); Ketones Urine Negative (Negative); Leukocyte Esterase Ur Negative LEU/UL (Negative); Nitrate Urine Negative (Negative); Protein Urine Negative (Negative); Specific Grav Ur 1.008 (1.001-1.035); Urobilinogen Urine 0.2 mg/dL (<2.0)
[2024-12-28 20:49] LABS: Basophils Percent Auto 0.2 % (0.2-1.2); Eosinophils Absolute Auto 0.1 K/mm3 (0-0.3); Eosinophils Percent Auto 0.5 % (0-4.4); Hematocrit 46.4 % (42.0-52.0); Hemoglobin 15.6 g/dL (14.0-18.0); Immature Granulocyte Absolute 0.03 K/mm3 (0.00-0.031); Immature Granulocyte Percent A 0.2 % (0-0.5); Lymphocytes Absolute Auto 1.54 K/mm3 (0.9-3.2); Lymphocytes Percent Auto 10.3 % (18.3-44.2); Mean Corpuscular HGB Conc 33.6 g/dl (32-36); Mean Corpuscular Hemoglobin 28.8 pg (26-34); Mean Corpuscular Volume 85.6 fl (80-100); Mean Platelet Volume 10.2 fl (7.4-10.4); Monocytes Absolute Auto 1.4 K/mm3 (0.1-0.6); Monocytes Percent Auto 9.5 % (2.6-8.5); Neutrophils Absolute Auto 11.8 K/mm3 (1.3-6.7); Neutrophils Percent Auto 79.3 % (45.5-73.1); Platelet Count Result 296 k/mm3 (150-375); Red Blood Count 5.42 M/mm3 (4.6-6.20); Red Cell Distribution Width 12.8 % (11.5-14.5); White Blood Count 14.9 K/mm3 (4.5-10.0)
--- OUTSIDE RECORDS SUMMARY | 2024-12-28 20:57 | XMS_ITS | Continuity of Care Document ---
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, Pharmacy : [facility] Oral (given by mouth) Complet ed 07/27/20212020 90.0 [facility] Ambien 5 mg oral tablet 2 tab(s), Oral, As Directed , PRN as needed for sleep, 0 total refill(s ), Maintena nce Oral (given by mouth) Discont inued 03/23/202220219C-[facility] Ambien 5 mg oral tablet 2 tab(s), Oral, As Directed , PRN sleep, # 24 tab(s), 0 total refill(s ), Acute, 08/22/22 12:00:00 AM 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 #[id number] Oral (given by mouth) Ordered 2021 30.0 [...] 270 tab(s), 0 total refill(s ), [place], Pharmacy : [facility] Oral (given by mouth) Discont inued 03/23/2022 2 2021 270.0 [facility]59[facility] ibuprofen 800 mg oral tablet 1 tab(s), Oral, every 8 hr, PRN pain (mild), with food or milk, # 270 tab(s), 0 total refill(s ), [facility], Pharmacy : [facility] Oral (given by mouth) Discont inued 08/09/2021 1 2021 270.0 [facility]59[facility] ibuprofen 800 mg oral tablet 1 tab(s), Oral, every 8 hr, PRN pain (mild), with food or milk, # 270 tab(s), 1 total refill(s ), [facility], Pharmacy : [facility] Oral (given by mouth) Ordered 3 2021 270.0 [facility]59[facility] omeprazole 20 mg oral delayed release capsule 1 cap(s), Oral, BID Oral (given by mouth) Complet ed 03/08/20222021 No Facilit y Access omeprazole 20 mg oral delayed release capsule 1 cap(s), Oral, Daily, 30 to 60 minutes before a meal, # 90 cap(s), 3 total refill(s ), [facility], Pharmacy : [facility] Oral (given by mouth) Discont inued 03/23/2022 2 2021 90.0 [facility]59[facility] omeprazole 20 mg oral delayed release capsule 1 cap(s), Oral, Daily, 30 to 60 minutes before a meal, # 90 cap(s), 3 total refill(s ), [facility], Pharmacy : [facility] Oral (given by mouth) Ordered 3 2021 90.0 0059C[facility] rizatriptan 5 mg oral tablet, [...] Acute, 12/08/21 12:00:00 AM CDT, Pharmacy : [facility] Complet ed 12/08/2021 2 2021 10.0 [facility]59[facility] rizatriptan 5 mg oral tablet, disintegrat ing See Instruct ions, PRN headache , Dissolve one tablet on tongue at onset of migraine headache , may repeat dose every 2 hours up to a maximum of 30 mg in 24 hours, # 10 tab(s), 2 total refill(s ), [facility], Pharmacy : [facility] Ordered 3 2021 10.0 [facility]59C[facility] rizatriptan 5 mg oral tablet, disintegrat ing See Instruct ions, PRN headache , Dissolve one tablet on tongue at onset of migraine headache , may repeat dose every 2 hours up to a maximum of 30 mg in 24 hours, # 6 tab(s), 0 total refill(s ), [facility] 08/09/20212021 6.0 0059[facility] tiZANidine 4 mg oral tablet tiZANidi ne 4 mg oral tablet Start Date: 12/31/19 Stop Date: 03/14/21 Status: Disconti phyllis Repeat number: 1 Discont inued 03/14/20212020 No Facilit y Access Vitamin D3 25 mcg (1000 intl units) oral tablet 1 tab(s), Oral, Daily, # 90 tab(s), 3 total refill(s ), [facility], Pharmacy : [facility] Oral (given by mouth) Discont inued 03/23/2022 2 2021 90.0 0059C[facility] Vitamin D3 25 mcg (1000 intl units) oral tablet 1 tab(s), Oral, Daily, # 90 tab(s), 3 total refill(s ), [facility], Pharmacy : [facility] Oral (given by mouth) Ordered 3 [...] Acute, 12/08/21 12:00:00 AM CDT, Pharmacy : [facility] Oral (given by mouth) Complet ed 12/08/2021 2021 60.0 [facility] Immunizations Combined list of available immunizations from the Department of Defense and Veterans Affairs facilities. Immunization Series Date Given Administered By Site Reaction Lot Number CVX Code Drug Screw Machine Hand Status Comments Source influenza virus vaccine, unspecified 2018 TRANSCR IBED 88 complet ed influenza virus vaccine, unspecifi ed 06/03/19 Given Ambulat ory Pharmac y influenza, injectable, quadrivalent- pf 2017 [id number] Seq[employer] complet ed influenza , injectabl e, quadrival ent-pf 05/06/18 Given Ambulat ory Pharmac y tetanus-dipht h toxoids (Td) adult/adol 2017 [id number] [place] [employer] complet ed tetanus-d iphth toxoids (Td) adult/ado [...] Pharmac y influenza, live, intranasal,qu adrivalent 2013 [id number] Mediune Inc comple t ed influenza , live, intranasa l,quadriv alent 07/28/14 Given Ambulat ory Pharmac y anthrax vaccine 2013 [id number] Emergent Bios[employer] complet ed anthrax vaccine 09/23/13 Given Ambulat ory Pharmac y measles/mumps /rubella virus vaccine 2013 [id number] Newforma & Photocollect Inc complet ed measles/m umps/rube lla virus vaccine 09/23/13 Given Ambulat ory Pharmac y typhoid Vi capsular polysaccharid e vac 2013 [id number] 101 sanofi pasteur complet ed typhoid Vi capsular polysacch aride vac 09/23/13 Given Ambulat ory Pharmac y influenza, live, intranasal,qu adrivalent 2012 [id number] Medimmune Inc comple t ed influenza , live, intranasa l,quadriv alent 04/30/13 Given Ambulat ory Pharmac y influenza virus vaccine, live 2011 [id number] Medimmune Inc comple t ed influenza virus vaccine, live 04/03/12 Given Ambulat ory Pharmac y influenza, seasonal, injectable 2010 [id number] 141 sanofi pasteur complet ed influenza , seasonal, injectabl e 03/28/11 Given Ambulat ory Pharmac y influenza virus vaccine,split 2009 [id number] 15 CSL Behring complet ed influenza virus vaccine,s plit 04/27/10 Given Ambulat ory Pharmac y Novel influenza-H1N 1-09, injectable 2009 [id number] 127 Novartis Pharmaceutica complet ed Novel influenza -M7R1-75, injectabl e 09/02/09 Given Ambulat ory Pharmac y influenza virus vaccine,split 2008 [id number] 15 sanofi pasteur complet ed influenza virus vaccine,s plit 04/15/09 Given Ambulat ory Pharmac y typhoid Vi capsular polysaccharid e vac 2007 [id number] 101 sanofi pasteur complet ed typhoid Vi capsular polysacch aride vac 07/14/08 Given Ambulat ory Pharmac y anthrax vaccine 2007 [id number] [employer] complet ed anthrax vaccine 07/14/08 Given Ambulat ory Pharmac y influenza virus vaccine, live 2007 [id number] Care[employer] Inc comple t ed influenza virus vaccine, live 06/09/08 Given Ambulat ory Pharmac y tetanus, diphtheria, acellular pertu is 2007 [id number] 115 sanofi pasteur complet ed tetanus, diphtheri a, acellular pertussis 08/22/07 Given Ambulat ory Pharmac y influenza virus vaccine,split 2006 [id number] 15 [place] complet ed influenza virus vaccine,s plit 05/24/07 Given Ambulat ory Pharmac y influenza virus vaccine, live 2005 [id number] MediUSTC [employer] and [employer] Inc comple t ed influenza virus vaccine, live 06/08/06 Given Ambulat ory Pharmac y typhoid vaccine, inactivated 2005 [id number] 101 sanofi pasteur complet ed typhoid vaccine, inactivat ed 09/27/05 Given Ambulat ory Pharmac y influenza virus vaccine,split 2004 [id number] 15 sanofi pasteur complet ed influenza virus vaccine,s plit 07/07/05 Given Ambulat ory Pharmac y influenza virus vaccine,split 2003 [id number] 15 sanofi pasteur complet ed influenza virus vaccine,s plit 05/31/04 Given Ambulat ory Pharmac y anthrax vaccine 2003 [id number] [employer] complet ed anthrax vaccine 12/29/03 Given Ambulat ory Pharmac y tuberculin purified protein derivative 2003 zzLef t Arm [id number] 96 sanofi pasteur complet ed Patient Tolerance : Negative Ambulat ory Pharmac y tuberculin purified protein derivative 2002 [id number] sanofi pasteur complet ed tuberculi n purified protein derivativ e 06/24/03 Given Ambulat ory Pharmac y anthrax vaccine 2002 [id number] 24 [employer] complet ed anthrax vaccine 06/24/03 Given Ambulat ory Pharmac y influenza virus vaccine, whole virus 2002 [id number] 16 Novartis Pharmaceutica ls complet ed influenza virus vaccine, whole virus 06/12/03 Given Ambulat ory Pharmac y hepatitis B adult vaccine 2002 [id number] 43 GlaxoSmithKli ne complet ed hepatitis B adult vaccine 12/15/02 Given Ambulat ory Pharmac y typhoid vaccine, inactivated 2002 [id number] 101 sanofi pasteur complet ed typhoid vaccine, inactivat ed 12/15/02 Given Ambulat ory Pharmac y anthrax vaccine 2002 [id number] 24 [employer] complet ed anthrax vaccine 10/06/02 Given Ambulat ory Pharmac y anthrax vaccine 2002 [id number] [employer] complet ed anthrax vaccine 09/21/02 Given Ambulat ory Pharmac y meningococcal polysaccharid e (MPSV4) 2002 [id number] 32 sanofi pasteur complet ed meningoco ccal polysacch aride (MPSV4) 08/11/02 Given Ambulat ory Pharmac y anthrax vaccine 2002 [id number] 24 [employer] complet ed anthrax vaccine 08/11/02 Given Ambulat ory Pharmac y influenza virus vaccine, whole virus 2001 [id number] 16 [facility] complet ed influenza virus vaccine, whole virus 06/25/02 Given Ambulat ory Pharmac y hepatitis B adult vaccine 2001 [id number] 43 GlaxoSmithKli ne complet ed hepatitis B adult vaccine 06/03/02 Given Ambulat ory Pharmac y tuberculin purified protein derivative 2001 [id number] 96 sanofi pasteur complet ed Patient Tolerance : Negative Ambulat ory Pharmac y hepatitis B adult vaccine 2001 [id number] A4 43 GlaxoSmithKli ne complet ed hepatitis B adult vaccine 01/31/02 Given Ambulat ory Pharmac y influenza virus vaccine, whole virus 2000 [id number] 16 sanofi pasteur complet ed influenza virus vaccine, whole virus 07/02/01 Given Ambulat ory Pharmac y influenza virus vaccine, whole virus 1999 [id number] 16 [facility] complet ed influenza virus vaccine, whole virus 07/19/00 Given Ambulat ory Pharmac y tuberculin purified protein derivative 1999 [id number] 96 [facility] complet ed Patient Tolerance : Negative Ambulat ory Pharmac y influenza virus vaccine, whole virus 1998 [id number] 16 [employer] complet ed influenza virus vaccine, whole virus 05/17/99 Given Ambulat ory Pharmac y yellow fever vaccine [id number] sanofi pasteur complet ed yellow fever vaccine 06/04/98 Given Ambulat ory Pharmac y hepatitis A adult vaccine 1997 [id number] 52 Newforma & Photocollect Inc complet ed hepatitis A adult vaccine 05/14/98 Given Ambulat ory Pharmac y influenza virus vaccine, whole virus [id number] sanofi pasteur complet ed influenza virus vaccine, whole virus 05/14/98 Given Ambulat ory Pharmac y typhoid vaccine, live, oral 1997 [id number] [employer] complet ed typhoid vaccine, live, oral 01/08/98 Given Ambulat ory Pharmac y hepatitis A adult vaccine 1997 [id number] 52 [place] [employer] complet ed hepatitis A adult vaccine 08/28/97 Given Ambulat ory Pharmac y measles/mumps /rubella virus vaccine 1997 03 complet ed measles/m umps/rube lla virus vaccine 08/28/97 Given Ambulat ory Pharmac y poliovirus vaccine, live, oral 1997 02 complet ed polioviru s vaccine, live, oral 08/28/97 Given Ambulat ory Pharmac y meningococcal polysaccharid e (MPSV4) 1997 [id number] 32 [employer] [place] complet ed meningoco ccal polysacch aride (MPSV4) [...] Ag LC 1.0 ng/mL 09/06 Result Comment: [employer] ECLIA methodology . According to the [place] [employer] , Serum PSA should decrease [...] presence or absence of malignant disease. Medical [facility] Chemistry % Free PSA LC 23.0 % [...] other population of men. Performed At: 01 [facility] [address] [place], [place] [id number] Dami WHITE MD Ph:[phone] Medical Group Chemistry Testostero ne Serum LC 201 ng/dL 09/06 L Result Comment: Adult male reference interval is based on a population of healthy nonobese males (BMI <30) between 19 and 39 years old. gigi Rodriguez.al. JCEM 2017,102;11 61-1173. PMID: [id number]. nm [facility] Chemistry Free Testostero ne Direct LC 7.6 pg/mL 09/06 Result Comment: Performed At: 01 [facility] [address] [place], [place] [id number] Dami WHITE MD Ph:[phone] Performed At: 02 [facility] [place] [address] [place], [place] [id number] Frandy Mcguire MD Ph:[phone] [facility] Hematolog y Baso Absolute 0.02 10^3/uL 0.00 - 0.91069 08/02 N [facility] Hematolog y Eos Absolute 0.08 10^3/uL 0.00 - 0.70356 08/02 N [facility] Hematolog y Saline Absolute 0.65 10^3/uL 0.20 - 0.01812 08/02 N [facility] Hematolog y Lymph Absolute 2.10 10^3/uL 0.70 - 3.57175 08/02 N [facility] Hematolog y Neutro Absolute 3.95 10^3/uL 1.00 - 7.77540 08/02 N [facility] Hematolog y Basophil % Auto 0.3 % 0.0 - 0.9 08/02 N [facility] Hematolog y Monocyte % Auto 9.6 % 1.7 - 9.3 08/02 H [facility] Hematolog y Eosinophil % Auto 1.2 % 0.0 - 6.6 08/02 N [facility] Hematolog y Lymphocyte % Auto 30.9 % 20.5 - 51.1 08/02 N [facility] Hematolog y Neutrophil % Auto 58.0 % 39.8 - 78.2 08/02 N [facility] Hematolog y Neut Abs Man 4.4 x10^3/mc L 08/02- nd [facility] Hematolog y Saline Abs Man 0.27 10^3/uL 08/02 005- nd [facility] Hematolog y Lymph Abs Man 1.9 x10^3/mc L 08/02 nd [facility] Hematolog y Eos Abs Man 0.07 10^3/uL 08/02 005- [facility] Hematolog y Lymph Man 28 /100WBC 20 - [id number] 08/02 N - [facility] Hematolog y Segs Man 64 /100WBC 55 - 78169 08/02 N - [facility] Hematolog y Saline Man 4 08/02 [facility] Hematolog y Atyp Lymph Man 3 08/02 [facility] Hematolog y Eos Man 1.0 % 0.0 - 6.6 08/02 N - [facility] Hematolog y PLT Estimate Adequate ( 1 9:03 AM) 08/02 N nd [facility] Hematolog y PLT Morph Normal ( 1 9:03 AM) 08/02 N [facility] Hematolog y RBC Morph Normal ( 1 9:03 AM) 08/02 N - [facility] Chemistry eGFR AA 121 mL/min 08/02 N - [facility] Chemistry eGFR Non-AA 104 mL/min [...] raphael. Performed by: Epidemiolog y Laboratory Service [facility] [address] [place], [place] [address], [place] [address] [facility] Chemistry Chol/HDL 5.21 mg/dL 08/02 nm [facility] Chemistry Cholestero l Total 302.00 mg/dL 50.00 - 200.00 08/02 H [facility] Chemistry HDL Cholestero l 58.00 mg/dL 40.00 - 60.00 08/02 N [facility] Chemistry LDL 202.60 mg/dL 30.00 - 100.00 08/02 H [facility] Chemistry Triglyceri cherise 207 mg/dL 35 - 150 08/02 H [facility] Hematolog y MCHC 35.0 g/dL 32.9 - 36.2 08/02 N [facility] Hematolog y MCV 82.6 fL 77.7 - 97.9 08/02 N [facility] Hematolog y MCH 28.9 pg 26.9 - 34.0 08/02 N [facility] Hematolog y Hematocrit 46.0 % 37.7 - 51.6 08/02 N 0059A- [facility] Hematolog y WBC 6.80 10^3/uL 3.10 - 10.30335 08/02 N [facility] Hematolog y Hemoglobin 16.10 g/dL 12.90 - 18.00 08/02 N - [facility] Hematolog y RBC 5.57 10^6/uL 4.50 - 5.50704 08/02 N 005 [facility] Hematolog y Differenti al? Auto+Mor ph ( 1 9:03 AM) 08/02 N 0059A- nm [facility] Hematolog y RDW 15.0 08/02 005 [facility] Hematolog y MPV 10.8 fL 6.5 - 9.8 08/02 H nd [facility] Hematolog y Platelets 210 10^3/uL 151 - [id number] 08/02 N nd [facility] Chemistry A/G [...] nd [facility] Group Urinalysi s UA Spec [place] 1.020 ( 9:03 AM) 08/02 N - [...] Peripheral Pulse Rate 75 bpm 03/23/2022 15:53:00 [facility] Pressure Manual Automatic 03/23/2022 15:53:00 [facility] Mean Arterial Pressure, Calc 91 mm[Hg] 03/23/2022 15:53:00 [facility] Procedures Combined list of: 1) Procedures from Department of Veterans Affairs facilities going back up to [facility] 18 months, not all VA non-surgical procedures are included; 2) All procedures from the Department of Defense facilities. Procedure Procedure Type Code Date Perfomer Comments Sour e Vasectomy date not reported; within the last 9 years Medical Group tonsillectomy, childhood [facility] 2 hernia repairs. childhood [facility] WTE X 2 DATE NOT REPORTED [facility] Social History Combined list of available smoking, tobacco, and other social history from Department of Defense and Veterans Affairs facilities. Social History Type Response Date Comment Sour e Sex Representation Male (finding) 09/10/2020 Un known Organization This section is an empty social history section. [facility] Tobacco Never - tobacco user Other Tobacco use:. Ambulatory Pharmacy Sexual Orientation Ambula tory Pharmacy Gender identity Ambulator y Pharmacy Assessment and Plan Combined list of future care activities from Department of Defense and Veterans Affairs facilities (e.g., assessment and plan notes, appointments, orders, and referrals). Additional future care activities may be listed in the Plan of Care section. Result Assessment and Plan Date Source Assessment and Plan Extracted from:Title : [facility] -[facility]omnia, Fatigue Author: LAMAR QUINN Date: 03/26/22 1. A nxiety 41 yr old M with history of PTSD and anxiety. Has gone to CBT for insomnia, anxiety, and PTSD. No history of anxiety medication. Problems initiating and maintaining sleep approx 1x every 2 weeks due to high levels of anxiety. Will take Ambien then to sleep. 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 Roma Willoughby APRN, TUBE INSPECTOR-C COMPOUND FINISHER 2. A bnormal urination P bryon states [...] with plan of care. Roma Willoughby APRN, TUBE INSPECTOR-C COMPOUND FINISHER 3. C usp injury P bryon continues to have i [...] plan of care. Roma Willoughby APRN, NP-C COMPOUND FINISHER Extracted from:Title: muscle strain Author: ROMA WILLOUGHBY [...] edema is noted especially looking at them [id number]. No bruising is noted at this time. [...] and agrees with plan of care. Roma Wliloughby APRN, CINDA-C COMPOUND FINISHER Ordered: Office Visit Level 3 Est [id number] 12/29/2024 0059[facility] Functional Status Combined list of recent functional and cognitive assessments recorded at Department of Defense and Veterans Affairs (VA).VA Functional Knott Measurement (FIM) Scale: 1 = Total Assistance (Subject = 0% +), 2 = Maximal Assistance (Subject = 25% +), 3 = Moderate Assistance (Subject = 50% +), 4 = Minimal Assistance (Subject = 75% +), 5 = Supervision, 6 = Modified Knott (Device), 7 = Complete Knott (Timely, Safely). Assessment Date/Time Source Assessment Type Assessment Skill Assessment Score Assessment Details No data available for this section
[2024-12-28 20:59] LABS: Alanine Aminotransferase 33 U/L (6-50); Albumin Level 4.4 g/dL (3.5-5.1); Alkaline Phosphatase 56 U/L (38-126); Anion Gap 7 mmol/L (4-12); Aspartate Amino Transferase 31 U/L (17-59); Bilirubin,Total 0.7 mg/dL (0.2-1.3); Blood Urea Nitrogen 13 mg/dL (9-20); Carbon Dioxide 26 mmol/L (22-30); Chloride 102 mmol/L (98-107); Estimated CRCL calculation 86 ml/min; Estimated Glomerular Filt Rate > 60; Glucose 148 mg/dL (65-110); Lipase 240 U/L (23-300); Potassium 3.6 mmol/L (3.4-5.0); Sodium 135 mmol/L (137-145)
--- NOTE | 2024-12-28 21:25 | ECG_ITS ---
Test Date: 2024-12-28 23:53:59 Measurements Intervals [place] Rate: 87 P: 38 MD: 120 QRS: -6 QRSD: 95 T: 33 QT: 359 QTc: 434 Interpretive Statements SINUS RHYTHM No previous ECG available for comparison Electronically Signed On 12-29-2024 14:59:57 CDT by Tate Eaton M.D.
--- NOTE | 2024-12-28 21:30 | ED_ITS ---
HPI - Abdominal Pain General Chief Complaint: Abdominal Pain Stated Complaint: abd pain Time Seen by Provider: 12/28/24 20:41 History of Present Illness HPI narrative: Patient is a 44-year-old male who presents to the ER with complaints of abdominal pain. He reports his symptoms started approximately 6 days ago, subsided, then returned 2 days ago. Patient endorses significant left mid abdominal pain that radiates to his low back. He denies any recent fevers, shortness of breath, chest pain. Patient does endorse mild discomfort with urination. He endorses a history of diverticulitis, and multiple broken bones. Patient denies any nausea or vomiting. Related Data Allergies Allergy/AdvReac Type Severity Reaction Status Date / Time No Known Allergies Allergy Verified 12/28/24 20:14 Review of Systems 2 Review of Systems: All systems reviewed & are unremarkable except as noted in HPI and below Exam 2 Narrative: GENERAL: Ill appearing, well-nourished, non-toxic, in mild distress d/t pain. HEAD: Normocephalic, atraumatic. NECK: Supple. No adenopathy, no masses. RESPIRATORY: Airway patent, respirations nonlabored. Clear to auscultation bilaterally, no rales, rhonchi, wheezing. CARDIOVASCULAR: Regular rate and rhythm without murmurs, rubs, or gallops. Peripheral pulses 2+ and equal bilaterally. ABDOMINAL: Soft, LUQ and LLQ tender, + distended, no hepatosplenomegaly. Normoactive BS. Negative Emerson sign. MUSCULOSKELETAL: Moves all extremities. Strength/ROM intact without gross deformities. SKIN: Warm, dry, normal color. No rashes. NEURO: A&O X3. Speech clear. Cranial nerves II-XII intact. No ataxic movements. PSYCHIATRIC: Appropriate mood and affect. Normal interaction. Course Vital Signs Vital signs: Vital Signs Temperature 36.9 C 12/28/24 20:07 Pulse Rate 92 12/28/24 20:07 Respiratory Rate 18 12/28/24 20:07 Blood Pressure 112/75 12/28/24 20:07 Pulse Oximetry 99 12/28/24 20:07 Oxygen Delivery Room Air 12/28/24 20:07 Temperature 36.9 C 12/28/24 20:07 Pulse Rate 92 12/28/24 20:07 Respiratory Rate 18 12/28/24 20:07 Blood Pressure 112/75 12/28/24 20:07 Pulse Oximetry 99 12/28/24 20:07 Oxygen Delivery Room Air 12/28/24 20:07 MDM - Abdominal Pain MDM Narrative Medical decision making narrative: Patient is a 44-year-old male who presents to the ER with complaints of abdominal pain. He reports his symptoms started approximately 6 days ago, subsided, then returned 2 days ago. Patient endorses significant left mid abdominal pain that radiates to his low back. He denies any recent fevers, shortness of breath, chest pain. Patient does endorse mild discomfort with urination. He endorses a history of diverticulitis, and multiple broken bones. Patient denies any nausea or vomiting. Labs Ordered: CBC, CMP, troponin, ethanol, INR, PTT, lipase, UA Imaging Ordered: CT abdomen pelvis Medications Ordered: Morphine 2 mg IV, 1 L normal saline IV bolus Results: Patient's CT abdomen pelvis indicates severe wall thickening of the sigmoid colon with moderate surrounding inflammation consistent with high-grade colitis. Consider surgical evaluation. Diverticulosis. No bowel obstruction. No free air. No abscess. Diagnosis: Diverticulitis, colitis Consults: 0100-consult to General surgery who has no further recommendations at this time. Patient Education/Shared MDM: Results of lab work and imaging shared with patient. He endorses mild improvement of symptoms following medication administration. It was advised patient be admitted to the hospital for IV antibiotics. Patient does not want to be admitted and would like to try going home on oral antibiotics. He verbalizes understanding of risks associated with going home and not receiving IV antibiotics to treat his colitis. Patient strongly advised to maintain hydration status upon discharge and follow-up with his PCP as soon as possible and General surgery as needed. He will be discharged home with a prescription for Augmentin and advised to take ibuprofen for pain control. Patient requested narcotics upon discharge but was told he needs to return to the ER if his pain becomes that severe. Strict return precautions provided. Patient verbalized understanding and is in agreement with plan. Vital signs stable at time of discharge. All questions answered. Differential Diagnosis Differential diagnosis: Likely abdominal pain, calculus of kidney, constipation, diverticulitis, gastroenteritis, pancreatitis and small bowel obstruction Lab Data Attestation: I reviewed the patient's lab results. 12/28/24 20:42 12/28/24 20:41 Labs: Lab Results 12/28/24 12/28/24 12/28/24 Range/Units 20:22 20:38 20:40 WBC (4.5-10.0) K/mm3 RBC (4.6-6.20) M/mm3 Hgb (14.0-18.0) g/dL Hct (42.0-52.0) % MCV (80-100) fl MCH (26-34) pg MCHC (32-36) g/dl RDW (11.5-14.5) % Plt Count (150-375) k/mm3 MPV (7.4-10.4) fl Immature Gran % (Auto) (0-0.5) % Neut % (Auto) (45.5-73.1) % Lymph % (Auto) (18.3-44.2) % [place] % (Auto) (2.6-8.5) % Eos % (Auto) (0-4.4) % Baso % (Auto) (0.2-1.2) % Lymph # (Auto) (0.9-3.2) K/mm3 [place] # (Auto) (0.1-0.6) K/mm3 Eos # (Auto) (0-0.3) K/mm3 Baso # (Auto) (0.0-0.1) K/mm3 Abs Immat Gran (auto) (0.00-0.031) K/mm3 Absolute Neuts (auto) (1.3-6.7) K/mm3 Absolute Nucleated RBC (0.0-0.012) K/mm3 Nucleated RBC % (0.0-0.2) % PT 15.3 H (11.1-14.7) Seconds INR 1.2 APTT 35.7 (22.3-36.8) Seconds Sodium (137-145) mmol/L Potassium (3.4-5.0) mmol/L Chloride (98-107) mmol/L Carbon Dioxide (22-30) mmol/L Anion Gap (4-12) mmol/L BUN (9-20) mg/dL Creatinine (0.7-1.3) mg/dL Estim Creat Clear Calc ml/min Estimated GFR (59 - ) Glucose (65-110) mg/dL Calcium (8.4-10.2) mg/dL Total Bilirubin (0.2-1.3) mg/dL AST (17-59) U/L ALT (6-50) U/L Alkaline Phosphatase (38-126) U/L Troponin I < 0.012 (0.000-0.034) ng/mL Total Protein (6.3-8.2) g/dL Albumin (3.5-5.1) g/dL Lipase 282 (23-300) U/L Urine Color Yellow (Yellow) Urine Appearance Clear (Clear) Urine pH 7.0 (5.0-9.0) Ur Specific [place] 1.008 (1.001-1.035) Urine Protein Negative (Negative) mg/dL Urine Glucose (UA) Negative (Negative) mg/dL Urine Ketones Negative (Negative) mg/dL Ur Blood (Man) Negative (Negative) Urine Nitrate Negative (Negative) Urine Bilirubin Negative (Negative) Urine Urobilinogen 0.2 (<2.0) mg/dL Leukocyte Esterase Rfl Negative (Negative) GLENDY/UL Ethyl Alcohol < 10 (<10) mg/dL 12/28/24 12/28/24 Range/Units 20:41 20:42 WBC 14.9 H (4.5-10.0) K/mm3 RBC 5.42 (4.6-6.20) M/mm3 Hgb 15.6 (14.0-18.0) g/dL Hct 46.4 (42.0-52.0) % MCV 85.6 (80-100) fl MCH 28.8 (26-34) pg MCHC 33.6 (32-36) g/dl RDW 12.8 (11.5-14.5) % Plt Count 296 (150-375) k/mm3 MPV 10.2 (7.4-10.4) fl Immature Gran % (Auto) 0.2 (0-0.5) % Neut % (Auto) 79.3 H (45.5-73.1) % Lymph % (Auto) 10.3 L (18.3-44.2) % [place] % (Auto) 9.5 H (2.6-8.5) % Eos % (Auto) 0.5 (0-4.4) % Baso % (Auto) 0.2 (0.2-1.2) % Lymph # (Auto) 1.54 (0.9-3.2) K/mm3 [place] # (Auto) 1.4 H (0.1-0.6) K/mm3 Eos # (Auto) 0.1 (0-0.3) K/mm3 Baso # (Auto) 0.0 (0.0-0.1) K/mm3 Abs Immat Gran (auto) 0.03 (0.00-0.031) K/mm3 Absolute Neuts (auto) 11.8 H (1.3-6.7) K/mm3 Absolute Nucleated RBC 0.000 (0.0-0.012) K/mm3 Nucleated RBC % 0.0 (0.0-0.2) % PT (11.1-14.7) Seconds INR APTT (22.3-36.8) Seconds Sodium 135 L (137-145) mmol/L Potassium 3.6 (3.4-5.0) mmol/L Chloride 102 (98-107) mmol/L Carbon Dioxide 26 (22-30) mmol/L Anion Gap 7 (4-12) mmol/L BUN 13 (9-20) mg/dL Creatinine 0.85 (0.7-1.3) mg/dL Estim Creat Clear Calc 86 ml/min Estimated GFR > 60 (59 - ) Glucose 148 H (65-110) mg/dL Calcium 9.0 (8.4-10.2) mg/dL Total Bilirubin 0.7 (0.2-1.3) mg/dL AST 31 (17-59) U/L ALT 33 (6-50) U/L Alkaline Phosphatase 56 (38-126) U/L Troponin I (0.000-0.034) ng/mL Total Protein 7.0 (6.3-8.2) g/dL Albumin 4.4 (3.5-5.1) g/dL Lipase 240 (23-300) U/L Urine Color (Yellow) Urine Appearance (Clear) Urine pH (5.0-9.0) Ur Specific [place] (1.001-1.035) Urine Protein (Negative) mg/dL Urine Glucose (UA) (Negative) mg/dL Urine Ketones (Negative) mg/dL Ur Blood (Man) (Negative) Urine Nitrate (Negative) Urine Bilirubin (Negative) Urine Urobilinogen (<2.0) mg/dL Leukocyte Esterase Rfl (Negative) GLENDY/UL Ethyl Alcohol (<10) mg/dL Imaging Data Attestation: I personally reviewed and interpreted this imaging study as follows: Radiologist's impression: Patient's CT abdomen pelvis indicates severe wall thickening of the sigmoid colon with moderate surrounding inflammation consistent with high-grade colitis. Consider surgical evaluation. Diverticulosis. No bowel obstruction. No free air. No abscess. Discharge Plan Discharge Clinical Impression: Colitis, Diverticulitis, Colon wall thickening Patient Disposition: Home Condition: Guarded Prognosis Instructions: Antibiotic Form Additional Instructions: Please return to the ER with any worsening symptoms, including fever, severe pain, altered mental status, uncontrolled nausea and vomiting. Follow-up with primary care provider as soon as possible. Please call them on Sunday for re- evaluation. Take all medications as prescribed. Complete your full dose of antibiotics. You may use Tylenol and/or ibuprofen for pain control. Patient Language: Mongolian Prescriptions: New amoxicillin-pot clavulanate 875-125 mg tablet 1 tablet PO Q12H Qty: 20 0RF No Action amoxicillin-pot clavulanate 875-125 mg tablet 1 tablet PO Q12H Qty: 14 0RF hydrocodone-acetaminophen 5-325 mg tablet 1 tablet PO Q8H PRN (Reason: pain) Qty: 14 0RF Follow-up/Referrals: Robert Aragon DO [Physician] - (primary care) UNKNOWN,DOCTOR [Primary Care Provider] - Homer Lee DO [Physician] - (general surgery) Time of Disposition: 01:48
--- NOTE | 2024-12-28 21:31 | PC.NURSE ---
lab contacted to add on blood work - lipase, ethanol, pt, ptt
[2024-12-28] MEDS: MORPHINE SULFATE (*CRX) 4 MG/ML INJ 2 MG IV PUSH (21:35)
[2024-12-28] MEDS: SODIUM CHLORIDE 0.9% IV 1,000 ML 999 ML IV CONT (21:35)
[2024-12-28 21:41] LABS: Ethanol < 10 mg/dL (<10)
[2024-12-28 21:47] LABS: INR 1.2; Partial Thromboplastin Time 35.7 Seconds (22.3-36.8); Prothrombin Time 15.3 Seconds (11.1-14.7)
[2024-12-28 21:50] LABS: Lipase 282 U/L (23-300)
[2024-12-28 22:03] LABS: Troponin I < 0.012 ng/mL (0.000-0.034)
[2024-12-29] VITALS (13 sets, daily range): BP systolic 118–122; BP diastolic 65–73; PULSE 75–104; RESP 13–22; TEMP 36.6; O2SAT 96–99
--- NOTE | 2024-12-29 01:57 | PC.NURSE ---
emily colbert to give augmentin 875 x 1 dose prior to discharge.
[2024-12-29] MEDS: AMOXICILLIN/CLAVULANATE K 875-125 MG TAB 1 TABLET PO (01:58)
== END 2024-12-29 02:04 | disposition home or self-care (01) ==
PROVIDERS: Student in an Organized Health Care Education/Training Program; Emergency Provider Registered Nurse
DX: K57.32 Diverticulitis of large intestine without perforation or abscess without bleeding (principal); K52.9 Noninfective gastroenteritis and colitis, unspecified
CPT/HCPCS: 36415; 74177; 80053; 81003; 82077; 83690; 84484; 85025; 85610; 85730; 93005; 96361; 96374; 99284; A9270; J2270; J7030; Q9967